=== PATIENT | male | born 1970 | race Caucasian/White ===

== ENCOUNTER 2024-01-11 09:44 | Emergency (ER) | payer BC, SELFPAY ==
[2024-01-11 09:56] VITALS: BP 129/90; PULSE 54; RESP 20; TEMP 36.9; O2SAT 96
--- NOTE | 2024-01-11 10:26 | ED.GENADULT ---
HPI - General Adult General Chief complaint: Dental/Oral Stated complaint: Dental Pain Source: patient, RN notes reviewed and old records reviewed Mode of arrival: ambulatory Limitations: no limitations History of Present Illness HPI narrative: Patient presents to [facility] with complaints of right-sided facial pain and swelling. He reports that he attributed this to a dental issue, went to dentist yesterday and was told that he has no dental issues that are causing the problem. He wakened this morning and felt worse. He denies any fever, chills, sweats. He reports that right-sided face is tender to the touch, particularly preauricular area. He denies any injury or trauma. He denies having a toothache. He has not been taking anything for his symptoms. No other concerns or complaints today. Related Data Allergies Allergy/AdvReac Type Severity Reaction Status Date / Time No Known Allergies Allergy Verified 01/11/24 09:50 Review of Systems Review of Systems: All systems reviewed & are unremarkable except as noted in HPI and below Constitutional: Constitutional: Reports no additional constitutional complaints ENT: Reports system reviewed and no additional complaints, except as documented and Reports facial pain (Right-sided) Cardiovascular: Cardiovascular: Reports no additional cardiovascular complaints Respiratory: Respiratory: Reports no additional respiratory complaints Gastrointestinal: Gastrointestinal: Reports no additional gastrointestinal complaints [facility] Family History Family History Father Family history of heart disease in male family member before age 55 Social History Social History Smoking status: Never smoker Alcohol intake: never Exam Const: General: cooperative, no acute distress, alert and awake Orientation/consciousness: oriented to person, oriented to place and oriented to time HENMT: Head: other (Right-sided facial tenderness from cheek, extending to the neck. ) Head images: 1. Mild erythema, slight swelling, tenderness Ears: TM's normal bilaterally, external ear abnormal auricular tenderness and pain with movement of external ear on the right and periauricular adenopathy on the right Teeth and gingiva: dentition normal and gingiva normal Throat: posterior oropharynx normal Resp: Effort & Inspection: normal respiratory effort and able to speak in complete sentences Auscultation: clear to auscultation bilaterally, no crackles, no rales, no rhonchi and no wheezes Cardio: Palpation: normal PMI Rate: regular rate Rhythm: regular rhythm Heart sounds: S1 normal heart sound present and S2 normal heart sound present Neuro: General: oriented to person, oriented to place and oriented to time Cranial nerves: Yes CN's II-XII intact bilaterally Psych: Appearance: grossly normal Thought process: Normal thought process present Insight: Good insight present (Psych) Judgement: Good judgement present (Psych) Course Course Level of Care: Express Care Visit Vital Signs Vital signs: Vital Signs Temperature 98.4 F 01/11/24 09:56 Pulse Rate 54 L 01/11/24 09:56 Respiratory Rate 20 01/11/24 09:56 Blood Pressure 129/90 01/11/24 09:56 Pulse Oximetry 96 01/11/24 09:56 Oxygen Delivery Room Air 01/11/24 09:56 Temperature 98.4 F 01/11/24 09:56 Pulse Rate 54 L 01/11/24 09:56 Respiratory Rate 20 01/11/24 09:56 Blood Pressure 129/90 01/11/24 09:56 Pulse Oximetry 96 01/11/24 09:56 Oxygen Delivery Room Air 01/11/24 09:56 Medical Decision Making MDM Narrative Medical decision making narrative: Patient with mild right-sided facial swelling, tenderness. Extends slightly into the neck. No drooling, no stridor. No signs of airway compromise. Normal exam of the oropharynx. No acute dental problems noted. The area of redness does seem to b
== END 2024-01-11 10:35 | disposition home or self-care (01) ==
PROVIDERS: Emergency Provider Nurse Practitioner Family
DX: L03.211 Cellulitis of face (principal)
CPT/HCPCS: 87081; 99213; G0463